=== PATIENT | female | born 1995 | race Caucasian/White ===

== ENCOUNTER 2017-03-27 15:07 | Inpatient (IN) | payer OTHER ==
[~2017-03-27] VITALS: Ht 165.1 cm; Wt 72.6 kg
[2017-03-27 18:45] VITALS: BP 126/77
--- NOTE | 2017-03-27 18:45 | NUR ---
Pre-admission note: Received client in intake at this time. MD in intake as well. Alert and oriented x 4. Verbally responsive. ABle to make her needs known. Patient is coherent and able to answer questions appropriately regarding the admission process. Patient is able to provide consent and verbalizes good understanding of the unit's policy and procedures. Appears anxious, with gross tremors, cold sweats, runny nose. Complains of nausea, x 2 episodes of emesis, and muscle aches. Patient states that she is here to detox off of heroin, xanax, cocaine, marijuana, methamphetamine and vodka. VS: Temp 98.1, Pulse 117, RR 21, O2 sat 98% RA, BP 122/67, PL 5/10. COWS 26/CIWA 24. MD seen the patient and will enter in admission orders. Will continue with the admission process when patient is in the unit and to endorse to incoming nurse for continuity of care.
[2017-03-27] MEDS ORDERED: CLONIDINE HCL 0.1 MG TABLET PO PRN (19:15)
[2017-03-27] MEDS ORDERED: LOPERAMIDE HCL 2 MG CAPSULE PO PRN ×2 (19:15)
[2017-03-27] MEDS ORDERED: LORAZEPAM 1 MG TABLET PO PRN ×2 (19:15)
[2017-03-27] MEDS ORDERED: ONDANSETRON 4 MG/2 ML VIAL IM PRN (19:15)
[2017-03-27] MEDS ORDERED: BUPRENORPHINE HCL 2 MG TAB.SUBL SL PRN (19:15)
[2017-03-27] MEDS ORDERED: MIRALAX 17 GM POWD.PACK PO PRN (19:15)
[2017-03-27] MEDS ORDERED: MAG HYDROX/AL HYDROX/SIMETH 30 ML LIQUID UDC PO PRN (19:15)
[2017-03-27] MEDS ORDERED: THIAMINE HCL 200 MG/2 ML VIAL IM ONE (19:15)
[2017-03-27] MEDS ORDERED: LORAZEPAM 2 MG/1 ML VIAL IM PRN (19:15)
[2017-03-27] MEDS ORDERED: ACETAMINOPHEN 325 MG TABLET PO PRN (19:15)
[2017-03-27] MEDS ORDERED: DICYCLOMINE HCL 20 MG TABLET PO PRN (19:15)
[2017-03-27 19:43] LABS: *URINE HCG, QUAL NEGATIVE (NEGATIVE)
[2017-03-27 19:50] VITALS: BP 123/76
[2017-03-27] MEDS: METHOCARBAMOL 750 MG TABLET PO PRN (19:56)
[2017-03-27] MEDS: ONDANSETRON ODT 4 MG TAB.RAPDIS SL PRN (19:56)
[2017-03-27] MEDS: LORAZEPAM 1 MG TABLET PO SCH ×2 (19:56→23:24)
[2017-03-27] MEDS: BUPRENORPHINE HCL 2 MG TAB.SUBL SL SCH ×2 (19:57→23:00)
--- NOTE | 2017-03-27 19:57 | NUR ---
Subutex, Ativan, PRN Zofran, and PRN Robaxin administration Pt reports chills, cold sweats, nausea, body aches, runny nose, and anxiety. She is frequently shifting in. COWS 19 and CIWA 16. Subutex and Ativan administered per orders. PRN Zofran and PRN Robaxin also administered. Addendum: 03/28/17 at 0449 by MARY NICOLE RN Pt is frequently shifting in bed.
[2017-03-27] MEDS ORDERED: THIAMINE HCL 200 MG/2 ML VIAL ONE (19:59)
[2017-03-27] MEDS ORDERED: LORAZEPAM 1 MG TABLET ONE ×2 (19:59→23:28)
[2017-03-27 20:00] VITALS: BP 123/76
[2017-03-27] MEDS ORDERED: BUPRENORPHINE HCL 2 MG TAB.SUBL SL ONE ×2 (20:00→23:28)
[2017-03-27] MEDS ORDERED: METHOCARBAMOL 750 MG TABLET ONE (20:00)
[2017-03-27] MEDS ORDERED: ONDANSETRON ODT 4 MG TAB.RAPDIS ONE (20:08)
[2017-03-27 21:00] VITALS: BP 110/71
--- NOTE | 2017-03-27 21:00 | NUR ---
Ativan, Subutex, Zofran, and Robaxin reassessment Ativan, Subutex, PRN Zofran, and PRN Robaxin effective. Pt's COWS reduced to 5 and CIWA reduced to 5. She is sitting still watching TV.
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
[2017-03-27 23:15] VITALS: BP 112/57
[2017-03-28] VITALS: BP 112/57
[2017-03-28 00:32] LABS: *AMPHETAMINE, URINE POSITIVE (NEGATIVE); *BARBITURATE, URINE NEGATIVE (NEGATIVE); *CANNABINOID, URINE POSITIVE (NEGATIVE); *COCCAINE, URINE POSITIVE (NEGATIVE); *OPIATE, URINE POSITIVE (NEGATIVE); *PHENCYCLIDINE SCREEN,URINE NEGATIVE (NEGATIVE)
[2017-03-28] MEDS: diphenhydrAMINE 50 MG CAPSULE PO PRN ×2 (02:35→23:19)
[2017-03-28] MEDS: IBUPROFEN 600 MG TABLET PO PRN ×2 (02:37→23:19)
--- NOTE | 2017-03-28 02:37 | NUR ---
PRN Subutex, PRN Patiño, and PRN Benadryl Pt reports cold sweats, chills, anxiousness, body aches, and inability to sleep. She is shifting in bed. COWS 13 and CIWA 10. PRN Subutex, PRN Motrin, and PRN Benadryl administered.
[2017-03-28] MEDS ORDERED: BUPRENORPHINE HCL 2 MG TAB.SUBL SL ONE (02:45)
[2017-03-28] MEDS ORDERED: IBUPROFEN 400 MG TABLET ONE (02:45)
[2017-03-28] MEDS ORDERED: diphenhydrAMINE 50 MG CAPSULE ONE (02:46)
[2017-03-28] MEDS ORDERED: IBUPROFEN 600 MG TABLET ONE (02:50)
[2017-03-28 04:00] VITALS: BP 99/56
--- NOTE | 2017-03-28 04:00 | NUR ---
PRN Subutex, PRN Motrin, and PRN Benadryl reassessment. PRN Subutex, PRN Motrin, and PRN Benadryl effective. Pt is lying in bed resting. COWS reduced to 3 and CIWA reduced to 3.
[2017-03-28 06:40] LABS: BASOPHILS # (AUTO) 0.1 K/uL (0.0-8.0); BASOPHILS % (AUTO) 0.8 % (0.0-2.0); EOSINOPHILS # (AUTO) 0.3 K/uL (0.0-0.7); EOSINOPHILS % (AUTO) 2.7 % (0.0-7.0); HEMATOCRIT 38.1 % (37-47); HEMOGLOBIN 12.8 G/DL (12.0-16.0); LYMPHOCYTES # (AUTO) 3.9 K/UL (0.8-4.8); LYMPHOCYTES % (AUTO) 39.6 % (20.5-51.5); MEAN CORPUSCULAR HGB CONC 34 g/dL (32.0-37.0); MEAN CORPUSCULAR VOLUME 89.4 FL (81.0-99.0); MONOCYTES # (AUTO) 0.7 K/UL (0.1-1.30); MONOCYTES % (AUTO) 7.1 % (0.0-11.0); NEUTROPHILS # (AUTO) 4.8 K/UL (1.8-8.9); NEUTROPHILS % (AUTO) 49.8 % (38.5-71.5); PLATELET COUNT (AUTO) 235 K/UL (150-450); RED BLOOD CELL COUNT(AUTO) 4.26 MIL/UL (4.2-5.4); WHITE BLOOD COUNT (AUTO) 9.8 K/UL (4.0-11.2)
[2017-03-28 06:59] LABS: ALANINE AMINOTRANSFERASE 20 U/L (14-59); ALKALINE PHOSPHATASE 68 U/L (50-136); AMYLASE 50 U/L (25-115); ASPARTATE AMINOTRANSFERASE 11 U/L (15-37); BILIRUBIN,TOTAL 0.2 mg/dL (0.2-1.0); CARBON DIOXIDE 30 mmol/L (21-32); CHLORIDE 107 mmol/L (98-107); GLUCOSE 123 mg/dL (74-106); LIPASE 118 U/L (73-393); MAGNESIUM 1.9 mg/dL (1.8-2.4); POTASSIUM 3.5 mmol/L (3.5-5.1); TOTAL PROTEIN, SERUM 6.6 g/dL (6.4-8.2); UREA NITROGEN, BLOOD 14 mg/dL (7-18)
--- NOTE | 2017-03-28 07:20 | NUR ---
Start of Shift Endorsement received from nightshift nurse. Pt is a 22 y/o female admitted for alcohol, benzo and opiate withdrawals. Pt has been placed on a 5 day Ativan and 5 day Subutex taper. Both tapers have been set to began on 03/28/17. PT is mildly withdrawing AEB CIWA 3, COWS 3 at 0400. Pt reports hx of seizure. Pt received PRN Zofran, Motrin, Robaxin and Subutex. Pt reports sleeping 3 hours and feeling tired. VS WNL with BP below 90/60. Full Code . PT is alert and oriented x4. Pt is in STABLE condition at this time. Remains compliant with medication and diet regimen. All needs have been met, All safety measures in place per hospital policy. Bed in lowest position, side rails up x2, call-light within reach. Will continue to monitor
[2017-03-28 07:21] LABS: ETHANOL < 3 MG/DL (0-0)
--- NOTE | 2017-03-28 07:22 | NUR ---
END OF SHIFT Pt is a 22 yo female admitted to [facility] on 03/27/17 at 1910 for BZD, ETOH, and Opiate dependence. Pt was experiencing withdrawal symptoms. PRN Subutex, Zofran, Robaxin, and Motrin. Last CIWA 3 and COWS 3. She drank 740mL and slept for 3 hours.
[2017-03-28 08:00] VITALS: BP 90/59
[2017-03-28] MEDS ORDERED: TUBERCULIN,PURIF.PROT.DERIV. 5 TU/0.1 ML TEST ID ONE (09:00)
[2017-03-28] MEDS: GABAPENTIN 300 MG CAPSULE PO SCH ×3 (09:36→20:43)
[2017-03-28] MEDS: MULTIVITAMINS,THERAPEUTIC TABLET PO SCH (09:36)
[2017-03-28] MEDS: BUPRENORPHINE HCL 2 MG TAB.SUBL SL SCH ×5 (09:37→20:48)
[2017-03-28] MEDS: LORAZEPAM 1 MG TABLET PO SCH ×5 (09:37→20:43)
[2017-03-28] MEDS: FOLIC ACID 1 MG TABLET PO SCH (09:37)
[2017-03-28] MEDS: THIAMINE HCL 100 MG TABLET PO SCH (09:37)
[2017-03-28 12:00] VITALS: BP 88/45
[2017-03-28] MEDS ORDERED: CLONIDINE HCL 0.1 MG TABLET PO ONE (13:00)
[2017-03-28 16:00] VITALS: BP 85/45
--- NOTE | 2017-03-28 19:25 | NUR ---
End of Shift Endorsement given to nightshift nurse. Pt is a 22 y/o female admitted for alcohol, benzo and opiate withdrawals. Pt has been placed on a 5 day Ativan and 5 day Subutex taper. Both tapers have begun today. PT is moderately withdrawing AEB CIWA 6, COWS 8 at 0400. Pt reports hx of seizure. Pt did not receive any PRN medications. Withheld Pt's 1700 medications due to pt presenting with BP below 90/60 and appears too sedated. Pt spent the whole day in her room sleeping, responsive to name and touch. Breathing even and unlabored. Intake: 1230ml, Voidx 2, BM x0. VS WNL with BP below 90/60. Full Code . PT is alert and oriented x4. Pt is in STABLE condition at this time. Remains compliant with medication and diet regimen. All needs have been met, All safety measures in place per hospital policy. Bed in lowest position, side rails up x2, call-light within reach. Will continue to monitor
[2017-03-28 20:00] VITALS: BP 110/65
--- NOTE | 2017-03-28 20:00 | NUR ---
START OF SHIFT NOTE PATIENT ALERT AND ORIENTED X 4. RESPIRATION EVEN AND UNLABORED. PATIENT REPORTS ANXIETY, BODY ACHES, SWEATING , ABDOMINAL CRAMPING , STUFFY NOSE, NO N/V. PATIENT DID NOT ATTEND GROUPS. APPETITE IS FAIR. RECEIVED REPORT FROM DAY SHIFT NURSE. PATIENT IS A 22 YEAR OLD FEMALE ADMITTED FOR ETOH/BENZO/OPIATE DEPENDENCE. CONTINUE ON 5 DAY ATIVAN AND 5 DAY SUBUTEX TAPER, TOLERATED WELL, NO ADVERSE REACTION. PATIENT IS ALLERGIC TO FISH. PATIENT REPORTS HISTORY OF SEIZURE. PATIENT DID NOT REQUIRE ANY PRN MEDICATION. PATIENT'S 1700 MEDS WAS HELD DUE TO PATIENT BEING SEDATED. PATIENT IN HER ROOM MOST OF THE DAY SLEEPING. PATIENT STABLE. LAST COWS 8 AND CIWA 6. ON FALL/SEIZURE PRECAUTION. SAFETY MEASURES IN PLACE. CALL LIGHT IN REACH. WILL CONTINUE TO MONITOR.
[2017-03-28] MEDS: METHOCARBAMOL 750 MG TABLET PO PRN (20:42)
--- NOTE | 2017-03-28 20:42 | NUR ---
PORN ROBAXIN ADMINISTRATION PATIENT C/O GENERALIZED BODY ACHES 03/03. PRN ROBAXIN GIVEN. WILL MONITOR FOR EFFECTIVENESS
[2017-03-28] MEDS: PRAZOSIN HCL 1 MG CAPSULE PO SCH ×2 (20:43→21:00)
--- NOTE | 2017-03-28 21:00 | NUR ---
MINIPRESS HELD PATIENT'S MINIPRESS HELD FOR BP-110/65 . WILL CONTINUE TO MONITOR.
--- NOTE | 2017-03-28 21:42 | NUR ---
PRN ROBAXIN RE-ASSESSMENT PATIENT STATES PAIN IS NOW 2/10, TOLERABLE. ROBAXIN HELPFUL. WILL CONTINUE TO MONITOR
--- NOTE | 2017-03-28 23:19 | NUR ---
PRN BENADRYL AND MOTRIN ADMINISTRATION PATIENT C/O GENERALIZED BODY ACHES 01/01 AND REQUESTS FOR SLEEP AID. PRN BENADRYL AND MOTRIN GIVEN. WILL MONITOR FOR EFFECTIVENESS
[2017-03-29] VITALS: BP 102/52
--- NOTE | 2017-03-29 00:19 | NUR ---
PRN MOTRIN AND BENADRYL RE-ASSESSMENT PATIENT IN BED SLEEPING COMFORTABLY. NO FACIAL GRIMACING. RESPIRATION EVEN AND UNLABORED. SAFETY MEASURES IN PLACE. CALL LIGHT IN REACH. WILL CONTINUE TO MONITOR
[2017-03-29 04:00] VITALS: BP 86/57
--- NOTE | 2017-03-29 07:17 | NUR ---
END OF SHIFT NOTE PATIENT REMAIN ALERT AND ORIENTED X 4. RESPIRATION EVEN AND UNLABORED. PATIENT REPORTED ANXIETY, BODY ACHES, SWEATING , ABDOMINAL CRAMPING , STUFFY NOSE, NO N/V BEGININING OF SHIFT. PATIENT STATES SHE ATTENDED GROUPS. APPETITE IS FAIR. RECEIVED CONTINUE ON 5 DAY ATIVAN AND 5 DAY SUBUTEX TAPER, TOLERATED WELL, NO ADVERSE REACTION. PATIENT WAS GIVEN PRN ROBAXIN, MOTRIN AND BENADRYL . MINIPRESS HELD DUE TO BLOOD PRESSURE LESS THAN 100/70 AND HR -70. PATIENT COMPLIANT WITH MEDICATIONS AND TREATMENT PLAN. ON FALL/SEIZURE PRECAUTION. SAFETY MEASURES IN PLACE. CALL LIGHT IN REACH. WILL CONTINUE TO MONITOR. SLEPT 6 HOURS. FLUID INTAKE 1,105 ML. VOIDED X 2 . NO BM. LAST COWS 2 AND CIWA 2.
--- NOTE | 2017-03-29 07:55 | NUR ---
START OF SHIFT Rcvd client from ongoing nurse, client is in room, she is a/o x4, she presents with depressed mood, flat affect, she reports anxiety, cold, chills, restless legs and fatigue, she stated "I don't think I can do this, all I'm thinking is how great it feels when I used heroin." Encourage client to attend group therapy for skills to maintain sobriety. Client denies any N/V/D or SI/HI. Encouraged client to increase fluid intake to facilitate detox. Client is a 22 yo female admitted for withdrawal from alcohol, benzodiazepine, and heroin. She is on last 5 day Ativan/Subutex taper, tolerating well (day 2). Last CIWA 2 /COWS 2 @ 0400. PRN Motrin for body aches, Robaxin for muscle pain, and Benadryl for inability to sleep, she slept 5 hrs. She reports allergies to fish, full code, regular diet (except fish). Client denies any history of withdrawal-induced seizure. She is on seizure precautions. Call light within reach. Side rails up x2/padded, bed locked and in low position.
[2017-03-29] MEDS: MULTIVITAMINS,THERAPEUTIC TABLET PO SCH (09:03)
[2017-03-29] MEDS: FOLIC ACID 1 MG TABLET PO SCH (09:03)
[2017-03-29] MEDS: GABAPENTIN 300 MG CAPSULE PO SCH (09:03)
[2017-03-29] MEDS: THIAMINE HCL 100 MG TABLET PO SCH (09:03)
[2017-03-29] MEDS: LORAZEPAM 1 MG TABLET PO SCH ×3 (09:04→21:19)
[2017-03-29] MEDS: BUPRENORPHINE HCL 2 MG TAB.SUBL SL SCH ×3 (09:05→21:21)
[2017-03-29 09:07] VITALS: BP 139/71
[2017-03-29] MEDS: METHOCARBAMOL 750 MG TABLET PO PRN (10:43)
--- NOTE | 2017-03-29 10:43 | NUR ---
PRN Tylenol, Robaxin, Bentyl and Clonidine Client reports generalized body aches 6/10, lower extremities with muscle pain, abdominal spasms, anxiety, cold/chills. Above medications administered, will continue to monitor. Call light within reach.
[2017-03-29] MEDS: ONDANSETRON ODT 4 MG TAB.RAPDIS SL PRN (11:09)
--- NOTE | 2017-03-29 11:09 | NUR ---
PRN Zofran 4mg SL for nausea and emesis x 1. Saltine crackers and sina shweta at bedside. Call light within reach.
--- NOTE | 2017-03-29 11:43 | NUR ---
Reassessment PRN Tylenol, Robaxin, Bentyl and Clonidine Client reports no relief from generalized body aches /, lower extremities with muscle pain continues, abdominal spasms, anxiety, and cold/chills. Will continue to monitor. Call light within reach.
[2017-03-29] MEDS: IBUPROFEN 600 MG TABLET PO PRN (11:51)
--- NOTE | 2017-03-29 11:51 | NUR ---
PRN Motrin 600mg PO administered Client reports generalized body aches 03/03. Will continue to monitor. Call light within reach.
[2017-03-29 12:00] VITALS: BP 102/64
--- NOTE | 2017-03-29 12:09 | NUR ---
Reassessment PRN Zofran 4mg SL Client reports relief from nausea and emesis. Client is tolerating saltine crackers and sina shweta well. Call light within reach. Will continue to monitor.
[2017-03-29] MEDS ORDERED: BUPRENORPHINE HCL 2 MG TAB.SUBL SL ONE ×3 (12:45→13:00)
--- NOTE | 2017-03-29 12:51 | NUR ---
Reassessment PRN Motrin 600mg Client reports slight relief from generalized body aches 3/10, but tolerable. Will continue to monitor. Call light within reach.
[2017-03-29] MEDS: GABAPENTIN 400 MG CAPSULE PO SCH ×2 (15:12→21:20)
[2017-03-29 16:55] VITALS: BP 100/67
[2017-03-29] MEDS ORDERED: LORAZEPAM 1 MG TABLET PO PRN ×2 (17:00)
--- NOTE | 2017-03-29 19:00 | NUR ---
END OF SHIFT Client is a 22 yo female admitted for withdrawal from alcohol, benzodiazepine, and heroin. She is on last 5 day Ativan/Subutex taper, tolerating well (day 2). Last CIWA 7 /COWS 7 @ 1600. PRN Tylenol, Robaxin, Bentyl and Clonidine for generalized body aches 6/10, lower extremities with muscle pain, abdominal spasms, anxiety, cold/chills respectively, medications not effective. PRN Zofran 4mg SL for nausea and emesis x 1, effective. PRN Motrin 600mg for generalized body aches 8/10, decreased to 3/10 and tolerable. Client is non-compliant with group therapy d/t withdrawal symptoms. Adequate PO intake 2000 mL, void x 3, stool x 1.She reports allergies to fish, full code, regular diet (except fish). Client denies any history of withdrawal-induced seizure. She is on seizure precautions. Call light within reach. Side rails up x2/padded, bed locked and in low position.
--- NOTE | 2017-03-29 19:25 | NUR ---
START OF SHIFT NOTES: Received patient sitting on the side of the bed. Alert and oriented x4. Mood: depressed, Affect: blunted. Encouraged to verbalize feelings and concerns. Stated "I want the doctor to increase my medications but he won't do it." Denies SI/HI/AVH. patient on 5 day Ativan/Subutex taper and tolerating well. Compliant with all medications. Interacting with peers. Calm and cooperative with care. Will continue to monitor behavior and medication effectiveness while ensuring a safe and supportive environment.
[2017-03-29 20:00] VITALS: BP 112/73
[2017-03-29] MEDS: BACLOFEN 10 MG TABLET PO SCH (21:19)
[2017-03-29] MEDS: QUETIAPINE FUMARATE 200 MG TABLET PO SCH (21:20)
[2017-03-29] MEDS: PRAZOSIN HCL 1 MG CAPSULE PO SCH (21:20)
--- NOTE | 2017-03-30 01:26 | NUR ---
Patient asleep. respiration even and unlabored. Refused vital sign,cows, and CIWA at this time. Will continue to monitor patient sleeping pattern. Addendum: 03/30/17 at 0128 by TAE GARCIA RN Amended: Links added.
--- NOTE | 2017-03-30 04:29 | NUR ---
Patient asleep. Respiration even and unlabored. Refused V/S, CIWA, and COWS at this time. Addendum: 03/30/17 at 0431 by TAE GARCIA RN Amended: Links added.
--- NOTE | 2017-03-30 06:15 | NUR ---
End of shift: Patient asleep at this time. Slept 4 hours and 30 minutes. Compliant with medication and all unit rules. Respiration even and unlabored. Interacted with staff and selective peers. No PRN given. Denies SI/HI/AVH. Patient on 5 day Ativan/ Subutex taper. No adverse reaction noted. Safety measures in place. Will continue to monitor behavior and medication effectiveness.
--- NOTE | 2017-03-30 07:30 | NUR ---
START OF SHIFT Pt 22 y/o female admitted foretoh , BZD, opiate withdrawal. Pt received in room on bed with eyes closed resting, but easily arousable to name. Pt alert and oriented to name, place, and time. Perrla. Skin warm and dry to touch. Respirations even and unlabored. It was reprted that pt slept for 5 hours last night. Bed on lowest position with side rails x2 up for safety. Call light within reach. No distress noted at this time.
[2017-03-30 08:14] VITALS: BP 85/42
[2017-03-30] MEDS ORDERED: BUPRENORPHINE HCL 2 MG TAB.SUBL SL SCH ×2 (09:00→15:00)
[2017-03-30] MEDS: LORAZEPAM 1 MG TABLET PO SCH ×4 (09:21→21:40)
[2017-03-30] MEDS: MULTIVITAMINS,THERAPEUTIC TABLET PO SCH (09:22)
[2017-03-30] MEDS: BACLOFEN 10 MG TABLET PO SCH (09:22)
[2017-03-30] MEDS: THIAMINE HCL 100 MG TABLET PO SCH (09:22)
[2017-03-30] MEDS: GABAPENTIN 400 MG CAPSULE PO SCH (09:22)
[2017-03-30] MEDS: FOLIC ACID 1 MG TABLET PO SCH (09:22)
[2017-03-30 12:00] VITALS: BP 90/52
[2017-03-30] MEDS: METHOCARBAMOL 750 MG TABLET PO PRN (12:22)
[2017-03-30] MEDS: KETOROLAC TROMETHAMINE 30 MG INJ IM PRN ×2 (12:23→18:35)
--- NOTE | 2017-03-30 12:29 | NUR ---
PRN Pt with generalized body pain 01/31. Pt observed moaning, and rocking back and forth on the bed. Toradol IM prn per MD order given and tolerated well.
--- NOTE | 2017-03-30 12:31 | NUR ---
PRN Pt states has generalized body aches /. Pt observed sitting on bed with head tucked in between knees, in a position. Robaxin po prn per MD order given and tolerated well.
[2017-03-30] MEDS: GABAPENTIN 300 MG CAPSULE PO SCH ×2 (15:10→21:39)
[2017-03-30] MEDS: DICYCLOMINE HCL 20 MG TABLET PO SCH ×2 (15:10→21:43)
[2017-03-30] MEDS: BACLOFEN 20 MG TABLET PO SCH ×2 (15:10→21:40)
[2017-03-30 15:11] LABS: HEPATITIS B SURFACE AG Negative (Negative)
[2017-03-30] MEDS: BUPRENORPHINE HCL 2 MG TAB.SUBL SL SCH ×3 (15:11→21:40)
--- NOTE | 2017-03-30 17:06 | NUR ---
Therapist prompted client to attend group therapy. Client stated that she would attend.
[2017-03-30 17:34] VITALS: BP 106/61
--- NOTE | 2017-03-30 18:40 | NUR ---
PRN pt with generalized body pain 01/01. Toradol IM prn per MD order given and tolerated well.
--- NOTE | 2017-03-30 18:46 | NUR ---
END OF SHIFT Pt 22y/o female admitted for etoh bzd, opiate withdrawal. Pt alert and oriented to name, place, and time. Perrla. Skin warm and slightly moist to touch. Respirations even and unlabored. Bilateral hand tremors noted. Pt with c/o body aches throughout the day. Pt observed mostly in room this morning, but did attend group activity. Pt medication compliant and tolerated well. No ASE noted. Bed on lowest position with side rails x2 up for safety. Call light within reach. No distress noted at this time.
[2017-03-30 20:00] VITALS: BP 112/60
--- NOTE | 2017-03-30 20:00 | NUR ---
START OF SHIFT Received 22 y/o female awake in the room. Admitted for etoh , BZD, opiate withdrawal. Pt alert and oriented to name, place, and time. Verbalized px is having anxiety,sweating, and runny nose. Respirations even and unlabored. No pain at this time. Bed on lowest position with side rails x2 up for safety. Latest COWS 6, CIWA 4. Will continue to monitor.
[2017-03-30] MEDS: PRAZOSIN HCL 1 MG CAPSULE PO SCH (21:39)
[2017-03-30] MEDS: QUETIAPINE FUMARATE 200 MG TABLET PO SCH (21:40)
[2017-03-31] VITALS: BP 93/60
--- NOTE | 2017-03-31 07:26 | NUR ---
END OF SHIFT Pt 22y/o female admitted for etoh bzd, opiate withdrawal. Pt alert and oriented to name, place, and time. Perrla. Skin warm and slightly moist to touch. Respirations even and unlabored. Pt medication compliant and tolerated well. Bed on lowest position with side rails x2 up for safety. Call light within reach. No distress noted at this time. Slept for 6.5hrs, with fluid intake of 1,100ml, voided 1x, with no BM. Latest COWS 6 CIWA 4. Endorsed to AM shift nurse.
[2017-03-31 08:00] VITALS: BP 96/62
--- NOTE | 2017-03-31 08:09 | NUR ---
START OF SHIFT Pt 22 y/o female admitted foretoh , BZD, opiate withdrawal. Pt received in room on bed with eyes closed resting, but easily arousable to name. Pt alert and oriented to name, place, and time. Perrla. Skin warm and dry to touch. Respirations even and unlabored. It was reprted that pt slept for 6.5 hours last night. Bed on lowest position with side rails x2 up for safety. Call light within reach. No distress noted at this time.
[2017-03-31] MEDS: LORAZEPAM 1 MG TABLET PO SCH ×3 (09:49→20:44)
[2017-03-31] MEDS: GABAPENTIN 300 MG CAPSULE PO SCH ×2 (09:49→14:55)
[2017-03-31] MEDS: FOLIC ACID 1 MG TABLET PO SCH (09:50)
[2017-03-31] MEDS: BACLOFEN 20 MG TABLET PO SCH ×3 (09:50→20:45)
[2017-03-31] MEDS: DICYCLOMINE HCL 20 MG TABLET PO SCH ×3 (09:50→20:44)
[2017-03-31] MEDS: MULTIVITAMINS,THERAPEUTIC TABLET PO SCH (09:50)
[2017-03-31] MEDS: THIAMINE HCL 100 MG TABLET PO SCH (09:50)
[2017-03-31] MEDS: BUPRENORPHINE HCL 2 MG TAB.SUBL SL SCH ×3 (09:50→20:45)
[2017-03-31] MEDS ORDERED: LORAZEPAM 1 MG TABLET PO ONE (11:15)
--- NOTE | 2017-03-31 11:18 | NUR ---
ONE TIME DOSE Pt brought to room by staff. Staff stated pt was very tremulous and could not stand unassisted. o2=98% @ra, lc=132/69, q=[id number]. on unit and evaluated pt with new order for ativan 2mg po x1 dose now , carried out.
[2017-03-31 12:00] VITALS: BP_SYST 114; BP_DIAS 64; BP_DIAS 69
[2017-03-31] MEDS: KETOROLAC TROMETHAMINE 30 MG INJ IM PRN (12:35)
[2017-03-31] MEDS: METHOCARBAMOL 750 MG TABLET PO PRN (12:35)
--- NOTE | 2017-03-31 12:42 | NUR ---
PRN Pt states has generalized body aches 8/10 that is bothering her. Robaxin po prn per MD order given and tolerated well.
--- NOTE | 2017-03-31 12:42 | NUR ---
PRN Pt states has generalized body pain /. toradol IM prn per MD order given and tolerated well.
--- NOTE | 2017-03-31 13:42 | NUR ---
RADHA BROWN Pt observed on bed in room with eyes closed resting, but easily arousable to name. no distress noted at this time.
--- NOTE | 2017-03-31 14:30 | NUR ---
1:1 Pt observed in shower by female staff, standing with eyes open and flat affect, but not responding. Pt assisted to room on bed. VS wnl. Pt began responding after a few minutes, stating, that she could hear us but could not respond back. MD hunter and pt was placed on 1:1 for safety.
[2017-03-31 16:00] VITALS: BP 98/62
[2017-03-31] MEDS ORDERED: KETOROLAC TROMETHAMINE 30 MG INJ IM ONE (17:30)
--- NOTE | 2017-03-31 17:38 | NUR ---
PRN Pt stated generalized body pain 8/10, aching. Pt observed with head tucked in between knees. Face appears flushed. MD made aware with new order for toradol 30 mg im x1 and nicotine patch 21mg topical daily, noted and carried out.
[2017-03-31] MEDS: NICOTINE 21 MG/24HR PATCH TD SCH (17:41)
--- NOTE | 2017-03-31 18:38 | NUR ---
PRN EVAL Pt observed in room on bed watching television. Pt states medication was effective and pain level 2/10.
--- NOTE | 2017-03-31 19:11 | NUR ---
END OF SHIFT Pt 22y/o female admitted for etoh bzd, opiate withdrawal. Pt alert and oriented to name, place, and time. Perrla. Skin warm and slightly moist to touch. Respirations even and unlabored. Bilateral hand tremors noted. Pt with c/o body aches throughout the day. Pt observed mostly in room this morning, but did attend group activity. Pt medication compliant and tolerated well. No ASE noted. Pt with sitter 1:1 for safety. Bed on lowest position with side rails x2 up for safety. Call light within reach. No distress noted at this time.
--- NOTE | 2017-03-31 19:20 | NUR ---
Start of Shift Patient Received. Patient is in her bed sleeping. Breathing even and on labored. No signs of pain or discomfort noted. Patient is 22 year old female admitted on 03/27/17 for ETOH, Benzo, and Opiate Dependence under the care of Dr. He. Patient is currently receiving a 5 day Ativan and 5 day Subutex. Patient verbalizes allergies to fish containing products, full code, following a regular diet, placed on fall and seizure precautions, and skin noted intact. Past medical history of Anxiety/panic attacks, depression, night terrors, and history of seizures. Per endorsement patient was noted with episode of increased tremors with PRN Ativan 2mg administered. Patient was placed on 1:1 for safety. Patient was also medicated for pain with PRN Toradol with medication noted to be effective. Last noted COWS 7 and CIWA 5. Patient remains on 1:1 with sitter at bedside. All needs attended to promptly. Will continue plan of care as ordered.
[2017-03-31 20:43] VITALS: BP 105/68
[2017-03-31] MEDS: GABAPENTIN 400 MG CAPSULE PO SCH (20:45)
[2017-03-31] MEDS: QUETIAPINE FUMARATE 200 MG TABLET PO SCH (20:45)
[2017-03-31] MEDS ORDERED: NICOTINE POLACRILEX 4 MG GUM-PK OF TEN BC PRN (21:00)
[2017-03-31] MEDS: PRAZOSIN HCL 1 MG CAPSULE PO SCH (21:32)
[2017-03-31] MEDS ORDERED: NICOTINE POLACRILEX 4 MG GUM-PK OF TEN BC ONE (21:44)
[2017-04-01 00:35] VITALS: BP 93/61
[2017-04-01 04:07] VITALS: BP 98/55
--- NOTE | 2017-04-01 07:26 | NUR ---
End of Shift Patient is in bed sleeping. Breathing even and non labored. No signs of pain or discomfort noted. Patient was admitted on 03/27/17 for ETOH, Benzo, and Opiate Dependence and continues on 5 day Ativan and 5 day Subutex. Patient continues on 1:1 for safety. New order obtained for Nicotine gum and patient received x1 dose. No other PRN medications administered. Last noted CIWA 12 and COWS 12. Patient remains on 1:1 with sitter at bedside. All needs attended to promptly. Will continue plan of care as ordered.
--- NOTE | 2017-04-01 07:30 | NUR ---
START OF SHIFT Pt 22 y/o female admitted foretoh , BZD, opiate withdrawal. Pt received in room on bed with eyes closed resting, but easily arousable to name. Pt alert and oriented to name, place, and time. Perrla. Skin warm and dry to touch. Respirations even and unlabored. Pt with sitter 1:1 for safety. It was reported that pt slept for 8 hours last night. Bed on lowest position with side rails x2 up for safety. Call light within reach. No distress noted at this time.
[2017-04-01 08:00] VITALS: BP 98/64
[2017-04-01] MEDS: NICOTINE 21 MG/24HR PATCH TD SCH (09:00)
[2017-04-01] MEDS: GABAPENTIN 300 MG CAPSULE PO SCH ×2 (09:52→15:25)
[2017-04-01] MEDS: THIAMINE HCL 100 MG TABLET PO SCH (09:52)
[2017-04-01] MEDS: MULTIVITAMINS,THERAPEUTIC TABLET PO SCH (09:52)
[2017-04-01] MEDS: BACLOFEN 20 MG TABLET PO SCH ×3 (09:52→21:35)
[2017-04-01] MEDS: FOLIC ACID 1 MG TABLET PO SCH (09:53)
[2017-04-01] MEDS: DICYCLOMINE HCL 20 MG TABLET PO SCH ×3 (09:53→21:35)
[2017-04-01] MEDS: BUPRENORPHINE HCL 2 MG TAB.SUBL SL SCH ×2 (09:53→21:35)
[2017-04-01] MEDS: LORAZEPAM 1 MG TABLET PO SCH ×2 (09:53→21:35)
[2017-04-01] MEDS: METHOCARBAMOL 750 MG TABLET PO PRN (12:27)
[2017-04-01] MEDS: KETOROLAC TROMETHAMINE 30 MG INJ IM PRN (12:28)
--- NOTE | 2017-04-01 12:34 | NUR ---
PRN Pt states has generalized body pain 01/31. Toradol im prn per MD order given and tolerated well.
--- NOTE | 2017-04-01 12:35 | NUR ---
PRN pt states has body aches 6/10. Robaxin po prn per MD order given and tolerated well.
[2017-04-01 13:31] VITALS: BP 114/62
--- NOTE | 2017-04-01 13:34 | NUR ---
PRN STEPHANIE Pt states pain 10/01.
--- NOTE | 2017-04-01 13:35 | NUR ---
PRN EVAL Pt states body aches moderate and tolerable at this time.
[2017-04-01 17:31] VITALS: BP 114/88
--- NOTE | 2017-04-01 19:06 | NUR ---
Start of shift note Received report from day shift nurse. Pt is a 22 yo female, A+Ox4, presenting to [facility] for ETOH/Benzo/Opiate/cocaine/Meth/Marijuana dependence. Pt has Allergies to Fish, is on Full code status, and on Regular diet. Pt has HX of Anxiety, Panic attacks, Depression, Seizure, Night terrors, and Hairline fractures of spine and skull. Pt is on Fall and Seizure precautions. Pt is on 5 day Ativan and 5 day Subutex tapers, tolerated well. No s/s of distress noted at this time. Respirations even and unlabored. Will continue to monitor.
[2017-04-01 20:05] VITALS: BP 119/79
--- NOTE | 2017-04-01 21:14 | NUR ---
Seizure Activity/MD Communication/PRN Ativan 2mg IM: PROCEDURE MANAGER Mona and PROCEDURE MANAGER Sp[employer]ribs Trimmer Jonnie were with pt at room doorway, when pt was noted to become unsteady. Pt assisted to floor by PROCEDURE MANAGER [employer]rib[employer] Trimmer Jonnie. Primary Nurse Casandra and Charge Nurse Sabina responded to call immediately. Pt noted with seizure like activity for 35 seconds. Pt assisted into room and onto bed. V/S: 111/63, 92, 98%, 20. Pt began seizing again and PRN Ativan 2mg IM administered. HP during seizure activity raised to 100-108. Spo2 remained WNL >97%. Pt noted to be somnolent and confused after seizure. V/S at 21:25 118/73, 92, 99%, 18. MD made aware with new order to renew PRN Ativan 1mg and 2mg according to admission protocol for first 24 hours, also order to place pt on 1:1 for safety, with Q1H CIWA monitoring.
[2017-04-01] MEDS: PRAZOSIN HCL 1 MG CAPSULE PO SCH (21:35)
[2017-04-01] MEDS: GABAPENTIN 400 MG CAPSULE PO SCH (21:35)
[2017-04-01] MEDS: QUETIAPINE FUMARATE 200 MG TABLET PO SCH (21:35)
[2017-04-01] MEDS ORDERED: LORAZEPAM 1 MG TABLET PO PRN ×2 (22:30)
[2017-04-02 00:53] VITALS: BP 104/55
[2017-04-02 04:24] VITALS: BP 102/63
--- NOTE | 2017-04-02 07:00 | NUR ---
End of shift note Pt is a 22 yo female, A+Ox4, presenting to [facility] for ETOH/Benzo/Opiate/cocaine/Meth/Marijuana dependence. Pt has Allergies to Fish, is on Full code status, and on Regular diet. Pt has HX of Anxiety, Panic attacks, Depression, Seizure, Night terrors, and Hairline fractures of spine and skull. Pt is on Fall and Seizure precautions. Pt is on 5 day Ativan and 5 day Subutex tapers, tolerated well. Pt was given PRN Ativan 2mg IM @2113. Pt slept for a total of 9 HRS. Last COWS: 3 @0400 and Last CIWA: 3 @0600. No s/s of distress noted at this time. Respirations even and unlabored. Will endorse to day shift nurse.
--- NOTE | 2017-04-02 07:15 | NUR ---
Start of shift Received report from police shift commander nurse. Pt is a 22 yo female, A+Ox4, presenting to [facility] for ETOH/Benzo/Opiate/cocaine/Meth/Marijuana dependence. Pt reports Allergies to Fish, is on Full code status, on Regular diet continues on Fall and Seizure precautions. Pt has HX of Anxiety, Panic attacks, Depression, Seizure, Night terrors, and Hairline fractures of spine and skull. Pt is on 5 day Ativan and 5 day Subutex tapers, tolerated well. Pts last COWS 3 and last CIWA 3, Encouraged fluids to help facilitate detox process, pt received PRN Ativan 2mg IM due to seizure activity. pt is currently on a 1:1 for safety. No s/s of distress noted at this time. Respirations even and unlabored. pt slept a total of 9 hours. All safety measures in place bed in lowest locked position. Will continue to monitor and provide support.
[2017-04-02 08:00] VITALS: BP 100/61
[2017-04-02] MEDS ORDERED: LORAZEPAM 1 MG TABLET PO SCH (09:00)
[2017-04-02] MEDS: NICOTINE 21 MG/24HR PATCH TD SCH (09:00)
[2017-04-02] MEDS ORDERED: BUPRENORPHINE HCL 2 MG TAB.SUBL SL SCH (09:00)
[2017-04-02] MEDS: THIAMINE HCL 100 MG TABLET PO SCH (09:31)
[2017-04-02] MEDS: GABAPENTIN 300 MG CAPSULE PO SCH ×2 (09:31→15:27)
[2017-04-02] MEDS: FOLIC ACID 1 MG TABLET PO SCH (09:31)
[2017-04-02] MEDS: DICYCLOMINE HCL 20 MG TABLET PO SCH ×3 (09:31→20:57)
[2017-04-02] MEDS: BACLOFEN 20 MG TABLET PO SCH ×3 (09:31→20:57)
[2017-04-02] MEDS: MULTIVITAMINS,THERAPEUTIC TABLET PO SCH (09:31)
[2017-04-02] MEDS ORDERED: BACL20TA PO (11:46)
[2017-04-02] MEDS ORDERED: PRAZ1CAP2 PO (11:46)
[2017-04-02] MEDS ORDERED: IBUP-1955 PO (11:46)
[2017-04-02] MEDS ORDERED: DIVA250T4 PO (11:46)
[2017-04-02] MEDS ORDERED: QUET200T PO (11:46)
[2017-04-02] MEDS ORDERED: DICY20TA28 PO (11:46)
[2017-04-02] MEDS ORDERED: DIPH50CA37 PO (11:46)
[2017-04-02] MEDS ORDERED: GABA-534 PO (11:46)
[2017-04-02] MEDS ORDERED: GABA-536 PO (11:46)
[2017-04-02 12:00] VITALS: BP 110/69
[2017-04-02] MEDS: DIVALPROEX 250 MG TABLET.DR PO SCH ×2 (13:38→17:14)
[2017-04-02 16:00] VITALS: BP 117/73
--- NOTE | 2017-04-02 17:17 | NUR ---
ASSUMED CARE assumed care for patient, all pertinent information discussed with primary nurse, will continue to monitor.
--- NOTE | 2017-04-02 18:59 | NUR ---
END OF SHIFT Patient alert and oriented x4, Patient with admitting Dx: etoh/bzo/opiate dependence and substance use of: cocaine, methamphetamine, and marijuana. Assumed care for patient at 1718. Patient compliant with therapeutic plan of care. Seizure precautions observed and in place. Continues with 1:1 sitter as ordered for safety precautions. Per primary nurse, last cow score of: 2 and last ciwa score of: 3. No PRNs were administered during shift. Continues on 5 day Ativan taper as ordered and 5 day Subutex taper as ordered. Patient denies any SI/HI. Encouraged to attend group therapies/sessions to learn new coping skills to prevent relapse, noted attending and participating.Encouraged adequate PO fluid intake as tolerated. Safety measures in place. Call light kept with in reach. All needs met and rendered. Patient endorsed to administration dean nurse, all pertinent information discussed.
[2017-04-02 20:00] VITALS: BP 105/71
--- NOTE | 2017-04-02 20:00 | NUR ---
START OF SHIFT Received report from day shift nurse. Pt attended a group meeting and returned to her room after. She is a 22 yo female admitted to [facility] on 03/27 for ETOH, BZD, and opiate withdrawal. She is A&O and ambulatory. Allergies to fish, full code status, and on a regular diet. She has a H seizure, hairline fractures of spine and skull, anxiety, depression, and night terrors. On admission he admitted to using vodka 750mL per day, Xanax 4mg pr day, heroin 2 grams per day, cocaine 0.5 grams intermittently, methamphetamine 0.5 grams per day intermittently, and marijuana. She completed a 5 day Ativan and 5 day Subutex taper and is scheduled for discharge tomorrow. She reports anxiety, mild agitation, and body aches. Fall and seizure precautions in place. Bed is down with call light in reach. Addendum: 04/03/17 at 0407 by MARY NICOLE RN 1:[address] for safety. Pt had a minor seizure last night.
[2017-04-02] MEDS: GABAPENTIN 400 MG CAPSULE PO SCH (20:57)
[2017-04-02] MEDS: QUETIAPINE FUMARATE 200 MG TABLET PO SCH (20:57)
[2017-04-02] MEDS: PRAZOSIN HCL 1 MG CAPSULE PO SCH (20:57)
[2017-04-02] MEDS: IBUPROFEN 600 MG TABLET PO PRN (21:02)
--- NOTE | 2017-04-02 21:03 | NUR ---
PRN Motrin Pt reports headache 12/01. PRN Motrin administered.
--- NOTE | 2017-04-02 22:03 | NUR ---
PRN Motrin reassessment PRN Motrin effective. Pt reports headache is relieved.
[2017-04-03] VITALS: BP 97/44
--- NOTE | 2017-04-03 | NUR ---
0000 COWS and CIWA deferred COWS and CIWA ordered Q4HWA. Pt is lying in bed resting with eyes closed. Vital signs obtained. Safety measures in place.
--- NOTE | 2017-04-03 04:00 | NUR ---
0400 Vitals refused/COWS and CIWA deferred Pt refused to be woken for 0400 vitals. Pt is lying in bed resting in bed with eyes closed. Respirations even and unlabored. 1:[address] COWS and CIWA ordered Q4HWA. Safety measures in place.
--- NOTE | 2017-04-03 07:25 | NUR ---
END OF SHIFT Report provided to day shift nurse. Pt is lying in bed resting. She is a 22 yo female admitted to [facility] on 03/27 for ETOH, BZD, and opiate withdrawal. She is A&O and ambulatory. Allergies to fish, full code status, and on a regular diet. She has a PMH seizure, hairline fractures of spine and skull, anxiety, depression, and night terrors. On admission she admitted to using vodka 750mL per day, Xanax 4mg pr day, heroin 2 grams per day, cocaine 0.5 grams intermittently, methamphetamine 0.5 grams per day intermittently, and marijuana. She completed a 5 day Ativan and 5 day Subutex taper and is scheduled for discharge today. Minimal s/s of withdrawal noted. Last COWS 3 and CIWA 1. She drank 2091mL and slept for 5 hours. Fall and seizure precautions in place. Bed is down with call light in reach.
--- NOTE | 2017-04-03 07:33 | NUR ---
START OF SHIFT NOTE: Received report from optical designer nurse. Pt is a 22 yo female admitted to [facility] on 03/27 for ETOH, BZD, and opiate withdrawal. Tapers completed. Pt is alert and oriented X4. Color good, skin warm and dry. Respirations even and unlabored. Resting in bed. Safety precautions observed. Call light within reach.
[2017-04-03 08:37] VITALS: BP 120/72
[2017-04-03] MEDS: DICYCLOMINE HCL 20 MG TABLET PO SCH (08:47)
[2017-04-03] MEDS: DIVALPROEX 250 MG TABLET.DR PO SCH (08:47)
[2017-04-03] MEDS: GABAPENTIN 300 MG CAPSULE PO SCH (08:47)
[2017-04-03] MEDS: THIAMINE HCL 100 MG TABLET PO SCH (08:47)
[2017-04-03] MEDS: FOLIC ACID 1 MG TABLET PO SCH (08:47)
[2017-04-03] MEDS: BACLOFEN 20 MG TABLET PO SCH (08:47)
[2017-04-03] MEDS: MULTIVITAMINS,THERAPEUTIC TABLET PO SCH (08:47)
[2017-04-03] MEDS: NICOTINE 21 MG/24HR PATCH TD SCH (08:49)
--- NOTE | 2017-04-03 08:49 | NUR ---
VSS Discharge papers signed. No home meds.
== END 2017-04-03 09:35 | disposition other institution (70) | DRG 895 ==
LOC: SRC 17:46
PROVIDERS: ADMIT Internal Medicine; ATTEND Internal Medicine
PROC: HZ2ZZZZ Detoxification Services for Substance Abuse Treatment (ICD-10-PCS; principal; 2017-03-27)
PROC: HZ31ZZZ Individual Counseling for Substance Abuse Treatment, Behavioral (ICD-10-PCS; 2017-03-30)
PROC: HZ41ZZZ Group Counseling for Substance Abuse Treatment, Behavioral (ICD-10-PCS; 2017-04-01)
DX: F10.230 Alcohol dependence with withdrawal, uncomplicated (principal); G40.919 Epilepsy, unspecified, intractable, without status epilepticus; F11.23 Opioid dependence with withdrawal; F13.230 Sedative, hypnotic or anxiolytic dependence with withdrawal, uncomplicated; Y90.9 Presence of alcohol in blood, level not specified; F41.0 Panic disorder [episodic paroxysmal anxiety]; G47.00 Insomnia, unspecified; Z81.3 Family history of other psychoactive substance abuse and dependence; Z59.1 Inadequate housing; F43.10 Post-traumatic stress disorder, unspecified; Z91.89 Other specified personal risk factors, not elsewhere classified; F17.210 Nicotine dependence, cigarettes, uncomplicated; F15.23 Other stimulant dependence with withdrawal; F14.10 Cocaine abuse, uncomplicated; F12.90 Cannabis use, unspecified, uncomplicated; R73.9 Hyperglycemia, unspecified; Z20.5 Contact with and (suspected) exposure to viral hepatitis
CPT/HCPCS: 36415; 70030-TC; 80307; 80324; 80346; 80349; 80353; 80361; 83690; 83735; 84703; 85025; 86592; 86705; 86803; 87340; 87806; G0480; J1885; J2060; J3411; J3490; Q0162; Q0163